=== PATIENT | male | born 1975 | race Caucasian/White ===

== ENCOUNTER 2019-06-07 13:26 | Emergency (ER) | payer BC, SELFPAY ==
[2019-06-07 13:32] VITALS: BP 145/93; PULSE 81; RESP 16; TEMP 37.3; O2SAT 97
--- NOTE | 2019-06-07 13:43 | ED.URI ---
HPI - URI/Sore Throat General Chief Complaint: Upper Respiratory Infection Stated Complaint: sore throat/cough/fatigue Time Seen by Provider: 06/07/19 13:44 Source: patient Mode of arrival: ambulatory Limitations: no limitations History of Present Illness HPI Narrative: This is a 44 years old male presented office for evaluation of cold symptoms for 2-day. Symptoms include body ache, cough, sinus drainage, sore throat, and feeling malaise. His is sick with influenza A. Related Data Home Medications Medication Instructions Recorded Confirmed omeprazole 06/07/19 sertraline mg 06/07/19 Allergies Allergy/AdvReac Type Severity Reaction Status Date / Time No Known Allergies Allergy Verified 06/07/19 13:39 Review of Systems Review of Systems: Narrative: CONSTITUTIONAL: Denies fever. Reports feeling achy, chills ENT:Reports rhinorrhea, congestion, sore throat, otalgia. CARDIOVASCULAR: Denies chest pain RESPIRATORY: Reports cough GASTROINTESTINAL: Denies abdominal pain, nausea, vomiting, diarrhea. GENITOURINARY: Denies urinary symptoms or discharge SKIN: Denies rash MUSCULOSKELETAL: Denies acute back pain NEUROLOGIC: Denies lightheaded PMFSH Social History Social History (Updated 06/07/19 @ 13:46 by JONAS Haynes) Smoking status: Never smoker Alcohol intake: current Comments At time of signature, I agree with nursing past medical, surgical, social and family history. There is no relevant family history pertinent to the presenting complaint. Exam Narrative: Exam Narrative: GENERAL: This is a well-nourished, well-developed patient, in no apparent distress. EYES: Sclera clear/white. Vision is grossly intact. EARS: External ears normal, auditory canals clear and without drainage, TMs normal without perforation. Hearing grossly intact. NOSE: External nose normal with no obvious nasal discharge, nares without redness, no rhinorrhea. THROAT: Mucous membranes moist, posterior pharynx clear. NECK: Neck supple, non-tender without lymphadenopathy, masses or thyromegaly. CARDIOVASCULAR: Regular rate and rhythm without murmurs, gallops, or rubs. RESPIRATORY: Clear to auscultation. Breath sounds equal bilaterally. No wheezes, rales, or rhonchi. GASTROINTESTINAL: Abdomen soft, non-tender, nondistended. Bowel sounds are active. No hepato-splenomegaly, or palpable masses. No guarding. SKIN: warm, intact with no suspicious lesions or rash, good texture and turgor. NEURO: awake, alert, and oriented to person, place and time. There were no obvious focal neurologic abnormalities. Steady gait Flushing Coma Scale Eye Opening: Spontaneous 4 Aicha Coma Scale Motor: Obeys Commands 6 Flushing Coma Scale Verbal: Oriented 5 Course Vital Signs Vital signs: Vital Signs Temperature 99.1 F 06/07/19 13:32 Pulse Rate 81 06/07/19 13:32 Respiratory Rate 16 06/07/19 13:32 Blood Pressure 145/93 H 06/07/19 13:32 Pulse Oximetry 97 06/07/19 13:32 Temperature 99.1 F 06/07/19 13:32 Pulse Rate 81 06/07/19 13:32 Respiratory Rate 16 06/07/19 13:32 Blood Pressure 145/93 H 06/07/19 13:32 Pulse Oximetry 97 06/07/19 13:32 MDM - URI/Sore Throat MDM Narrative Medical decision making narrative: Discharge instructions reviewed with patient, as well as provided in writing per nursing staff. The instructions also include specific and strict return/GO TO THE ER as well as f/u information. All questions have been answered, and the patient deny any further questions with discharge and discharge plan. Differential Diagnosis Differential diagnosis: Likely upper respiratory infection, sinusitis, viral infection, bronchitis, influenza and pharyngitis Lab Data Attestation: I reviewed the patient's lab results. Critical Care Time Critical Care Time Critical Care Time: No Discharge Plan Discharge Patient Disposition: Home, Self-Care Condition: Stable Instructions: Antibiotic Form Prescripti
== END 2019-06-07 14:00 | disposition home or self-care (01) ==
PROVIDERS: Emergency Provider Nurse Practitioner
DX: J06.9 Acute upper respiratory infection, unspecified (principal); R03.0 Elevated blood-pressure reading, without diagnosis of hypertension; R05 Cough
CPT/HCPCS: 87804; 99213; G0463

== ENCOUNTER 2020-07-30 14:43 | Outpatient (CLI) | payer BC, SELFPAY ==
--- NOTE | ~2020-07-30 | CT_ITS ---
EXAMINATION: CT facial bones wo con DATE: 07/30/2020 15:11 INDICATION: Facial pain TECHNIQUE: Computed tomography (CT) of the facial bones and maxillofacial region was performed withou t intravenous contrast. The dose-length product (DLP) was 280.22 mGy-cm. Automated exposure control a nd iterative reconstruction technique were employed. COMPARISON: None. FINDINGS: No facial bone fracture there is mild soft tissue swelling of the nose. A 1 mm hyperdense f ocus is present in the soft tissues at the superior margin of the right nasal bone. The globes are no rmal. There is moderate opacification of the ethmoidal air cells. There is also moderate mucosal thic kening in the left maxillary sinus and mild mucosal thickening of the right maxillary sinus. There is occlusion of the bilateral ostiomeatal complexes. IMPRESSION: 1. No acute facial fracture identified. 2. 1 mm hyperdense focus in the soft tissues at the superior margin of the right nasal bone, possibly foreign body. 3. Sinus disease. Reviewed, dictated and finalized at location A. IMPRESSION: 1. No acute facial fracture identified. 2. 1 mm hyperdense focus in the soft tissues at the superior margin of the righ t nasal bone, possibly foreign body. 3. Sinus disease.
== END 2020-07-30 14:44 | disposition home or self-care (01) ==
PROVIDERS: PCP Family Medicine; Visit Provider Surgery Plastic and Reconstructive Surgery
DX: S09.92XA Unspecified injury of nose, initial encounter (principal); X58.XXXA Exposure to other specified factors, initial encounter
CPT/HCPCS: 70486

== ENCOUNTER 2020-11-20 11:56 | Emergency (ER) | payer BC, SELFPAY ==
[2020-11-20 12:05] VITALS: BP 144/99; PULSE 88; RESP 18; TEMP 36.7; O2SAT 100
--- NOTE | 2020-11-20 12:14 | ED.URI ---
HPI - URI/Sore Throat General Chief Complaint: Upper Respiratory Infection Stated Complaint: sinus infection Time Seen by Provider: 11/20/20 12:14 Source: patient Mode of arrival: ambulatory Limitations: no limitations History of Present Illness HPI Narrative: Randolph Silvestre is a 45 yo male with PMH of GERD and anxety who comes here with 5 days of sinus drainage coughing difficulty with bronchospasm and difficulty sleeping after returning from a trip to [place]. Does not smoke; has tried variety of [id number] medication which has not helped substantially Related Data Home Medications Medication Instructions Recorded Confirmed omeprazole 20 mg PO DAILY 06/07/19 11/20/20 sertraline 100 mg PO DAILY 06/07/19 11/20/20 Allergies Allergy/AdvReac Type Severity Reaction Status Date / Time No Known Allergies Allergy Verified 11/20/20 12:13 Review of Systems Review of Systems: CONSTITUTIONAL: Denies fever, chills, sweats. EYES: Denies visual changes, redness, discharge. ENT: Has rhinorrhea, has congestion, sore throat, otalgia. Frontal sinus headache CARDIOVASCULAR: Denies chest pain, palpitations, edema. RESPIRATORY: Denies dyspnea, wheezing, wet cough GASTROINTESTINAL: Denies abdominal pain, nausea, vomiting, diarrhea. GENITOURINARY: Denies dysuria, hematuria, abnormal discharge SKIN: Denies rash or itching. NEUROLOGIC: Denies numbness, or focal weakness. PSYCHIATRIC: Denies anxiety or depression. [facility] Past Medical History Medical History Anxiety GERD (gastroesophageal reflux disease) Family History Family History Other No acute medical problems Social History Social History Smoking status: Never smoker Alcohol intake: current Comments At time of signature, I agree with nursing past medical, surgical, social and family history. There is no relevant family history pertinent to the presenting complaint. Patient has high blood pressure here and is having discomfort, should follow-up with primary care physician next week Exam Narrative: GENERAL: This is a well-nourished, well-developed patient, in mild distress. HEAD: normocephalic, atraumatic. EYES:. Sclera clear/white. Vision is grossly intact. EARS: External ears normal, auditory canals clear and without drainage, TMs normal without perforation. Hearing grossly intact. NOSE: External nose normal with nasal discharge, nares with redness, no rhinorrhea. THROAT: Mucous membranes moist, posterior pharynx erythema NECK: Neck supple, non-tender CARDIOVASCULAR: Regular rate and rhythm without murmurs, gallops, or rubs. RESPIRATORY: Clear to auscultation. Breath sounds equal bilaterally. No wheezes, rales, or rhonchi. GASTROINTESTINAL: Abdomen soft, SKIN: warm, intact with no suspicious lesions or rash, good texture and turgor. NEURO: awake, alert, and oriented to person, place and time. There were no obvious focal neurologic abnormalities. Steady gait EXTREMITIES: Normal range of motion. BACK: Nontender without deformity Course Course Emergency Course: [facility] of [facility] symptoms and lack of improvement over the last 5 days with OTC meds Started on amoxicillin and prednisone encouraged to continue taking Zyrtec and Mucinex Vital Signs Vital signs: Vital Signs Temperature 98.0 F 11/20/20 12:05 Pulse Rate 88 11/20/20 12:05 Respiratory Rate 18 11/20/20 12:05 Blood Pressure 144/99 H 11/20/20 12:05 Pulse Oximetry 100 11/20/20 12:05 Temperature 98.0 F 11/20/20 12:05 Pulse Rate 88 11/20/20 12:05 Respiratory Rate 18 11/20/20 12:05 Blood Pressure 144/99 H 11/20/20 12:05 Pulse Oximetry 100 11/20/20 12:05 MDM - URI/Sore Throat Differential Diagnosis Differential diagnosis: Likely otitis media, sinusitis, viral inf
== END 2020-11-20 12:34 | disposition home or self-care (01) ==
PROVIDERS: Emergency Provider Nurse Practitioner; PCP Family Medicine
DX: J01.10 Acute frontal sinusitis, unspecified (principal); F41.9 Anxiety disorder, unspecified; K21.9 Gastro-esophageal reflux disease without esophagitis
CPT/HCPCS: 99213; G0463

== ENCOUNTER 2021-08-09 17:19 | Emergency (ER) | payer BC, SELFPAY ==
--- NOTE | 2021-08-09 17:25 | ED.URI ---
HPI - URI/Sore Throat General Chief Complaint: Upper Respiratory Infection Stated Complaint: cough Time Seen by Provider: 08/09/21 17:25 Source: patient and RN notes reviewed Mode of arrival: ambulatory Limitations: no limitations History of Present Illness HPI Narrative: 46-year-old male presents concern for 3-week history of nasal congestion, pressure, sinus pain and drainage. Reports cough, sore throat, chest congestion. Reports hoarse voice. Reports symptoms are worsening despite multiple [id number] medications. He denies fever, body aches, chills, sweats. Denies known sick contacts. MD elicited complaint: cough and nasal congestion Related Data Home Medications Medication Instructions Recorded Confirmed omeprazole 20 mg PO DAILY 06/07/19 08/09/21 Allergies Allergy/AdvReac Type Severity Reaction Status Date / Time No Known Allergies Allergy Verified 08/09/21 17:45 Review of Systems Review of Systems: CONSTITUTIONAL: Denies malais reports. Denies chills, sweats, or fever. EYES: Denies visual changes, redness, or discharge. ENT: Reports rhinorrhea, congestion, sinus pain, and sore throat. CARDIOVASCULAR: Denies chest pain, palpitations, or edema. RESPIRATORY: Reports cough, hoarse voice. Denies dyspnea. GASTROINTESTINAL: Denies abdominal pain, nausea, vomiting, diarrhea SKIN: Denies rash or itching. MUSCULOSKELETAL: Denies myalgia. NEUROLOGIC: Denies headache. All systems reviewed & are unremarkable except as noted in HPI and below PMFSH Past Medical History Medical History Anxiety GERD (gastroesophageal reflux disease) Family History Family History Other No acute medical problems Social History Social History Smoking status: Never smoker Alcohol intake: current Comments At time of signature, agree with nursing past medical, surgical, social and family history. There is no relevant family history pertinent to the presenting complaint Exam Narrative: GENERAL: Well-appearing, well-nourished, and in no acute distress. HEAD: Normocephalic EYES: PERRLA, conjunctivae clear ENT: Nares clear, turbinates edematous and erythematous, sinus tenderness. Mucous membranes moist. TM pearly hopkins with dull light reflex bilaterally; no tragal tenderness. Oropharynx not erythematous without lesions. Tonsils not enlarged and without exudate, no drooling, no hoarseness, no trismus, uvula midline. NECK: Supple. No lymphadenopathy CHEST: Clear to auscultation, breath sounds equal. No wheezing, rhonchi, rales, or stridor. No respiratory distress, speaks in full sentences. HEART: Regular rate and rhythm. No murmur heard. SKIN: Warm, dry, no rash. NEURO: Alert and oriented x3. PSYCH: Normal mood and affect Course Course Emergency Course: Patient is aware of diagnosis, understands and agrees to treatment plan. Anticipatory guidance given. Patient agrees to follow-up as directed and is aware of reasons to seek care at the emergency department. Portions of this record may have been created with voice recognition software Level of Care: Express Care Visit Vital Signs Vital signs: Reviewed. Pt has been instructed to follow up with his primary care provider within the next week regarding his elevated blood pressure today. MDM - URI/Sore Throat MDM Narrative Medical decision making narrative: Differential diagnosis considered: [place] virus, strep pharyngitis, allergic rhinitis, upper respiratory tract infection, sinusitis, rhinosinusitis, nasopharyngitis. viral pharyngitis, otitis media, otitis externa, pneumonia, bronchitis, viral cough syndrome, viral syndrome, and influenza. Exam findings show no acute concerns or changes; patient is non-toxic appearing and is in no distress. Patient is appropriate for outpatient treatment and follow-up. Lab Data Attestat
[2021-08-09 17:35] VITALS: BP 151/104; PULSE 87; RESP 18; TEMP 37; O2SAT 99
== END 2021-08-09 18:15 | disposition home or self-care (01) ==
PROVIDERS: Emergency Provider Nurse Practitioner; PCP Family Medicine
DX: J32.9 Chronic sinusitis, unspecified (principal); J40 Bronchitis, not specified as acute or chronic; K21.9 Gastro-esophageal reflux disease without esophagitis
CPT/HCPCS: 87081; 87880; 99213; G0463